=== PATIENT | male | born 1995 | race Caucasian/White ===

== ENCOUNTER → 2025-03-29 | Emergency (ER) | payer OTHER ==
[~2025-03-29] VITALS: Ht 172.7 cm; Wt 100.0 kg
[~2025-03-29] MED LIST: ALBU18HF2 IH; METH4TAB95 MT
[2025-03-29] MEDS: IPRATROPIUM/ALBUTEROL 0.5-3(2.5)MG/3ML NEB HHN ONE (04:25)
[2025-03-29 04:28] VITALS: PULSE 104; RESP 20; O2SAT 96
[2025-03-29 04:45] VITALS: BP 133/79; PULSE 97; RESP 20; TEMP 36.8; O2SAT 97
== END | disposition home or self-care (01) ==
LOC: ER 03:19
DX: J45.901 Unspecified asthma with (acute) exacerbation (principal); I10 Essential (primary) hypertension; Z91.148 Patient's other noncompliance with medication regimen for other reason
CPT/HCPCS: 71045; 94640; 93005; 98960; 99283; Z7610 ×3; 94070; 94664